=== PATIENT | male | born 1985 | race Caucasian/White ===

== ENCOUNTER 2016-12-15 00:17 | Emergency (ER) | payer OTHER ==
[~2016-12-15 00:17] MED LIST: MOTRIN400 MG PO; NO MEDICATIONS; VIBRAMYCIN100 M1 PO
[2016-12-15 06:08] LABS: BASOPHIL% 0.4 % (0-2.5); EOSINOPHIL# 0.2 X10e3 (0-0.7); EOSINOPHIL% 2.4 % (0.0-7.0); HEMOGLOBIN 14.2 gm/dL (13.0-16.0); LYMPHOCYTE# 2.6 X10e3 (1.0-3.5); LYMPHOCYTE% 31.5 % (17.0-45.0); MEAN CELL VOLUME 90.1 FL (83-96); MEAN CORPUSCULAR HEMOGLOBIN 29.7 PG (28-34); MEAN PLATELET VOLUME 7.9 FL (6.5-11.5); MONOCYTE# 0.7 X10e3 (0-1.0); MONOCYTE% 8.5 % (3.0-12.0); NEUTROPHIL# 4.7 X10e3 (1.5-7.1); NEUTROPHIL% 57.2 % (40-75); PLATELET COUNT 269 X10e3 (140-420); RED BLOOD COUNT 4.77 X10e (3.90-5.60); RED CELL DISTRIBUTION WIDTH 13.7 % (11.0-15.5); WHITE BLOOD COUNT 8.2 X10e3 (4.0-10.5)
[2016-12-15 06:11] LABS: DIFF IND NO
[2016-12-15 06:47] LABS: ACETAMINOPHEN <10 ug/mL; ALBUMIN SERUM 4.2 g/dL (3.5-5.0); ALCOHOL BLOOD <5 mg/dL ([, 0]); ALKALINE PHOSPHATASE 68 U/L (32-92); ALT (SGPT) 73 U/L (10-40); AST (SGOT) 54 U/L (10-42); BILIRUBIN, DIRECT 0.1 mg/dL (0.0-0.2); BILIRUBIN,INDIRECT 0.7 mg/dL (0.0-0.9); BILIRUBIN,TOTAL 0.8 mg/dL (0.2-2.0); BLOOD UREA NITROGEN 12 mg/dL (9-23); CALCIUM SERUM 9.3 mg/dL (8.4-10.2); CARBON DIOXIDE 28 mmol/L (22-31); CHLORIDE 103 mmol/L (100-111); CREATININE SERUM 0.8 mg/dL (0.6-1.4); GLOM FILT RATE Estimated 119.9 mL/min (>60); GLUCOSE FASTING 97 mg/dL (70-110); POTASSIUM 4.3 mmol/L (3.5-5.1); PROTEIN TOTAL SERUM 7.8 g/dL (6.0-8.3); SALICYLATE <4.0 mg/dL; SODIUM 139 mmol/L (135-145)
[2016-12-15 07:29] LABS: AMPHETAMINE POS (NEG); BARBITURATES NEG (NEG); BENZODIAZEPINES NEG (NEG); COCAINE NEG (NEG); MARIJUANA NEG (NEG); OPIATES NEG (NEG); TRICYCLIC ANTIDEPRESSANTS NEG (NEG); U METHADONE NEG (NEG)
== END 2016-12-15 09:27 | disposition short-term general hospital (02) ==
LOC: CED 00:17
PROVIDERS: Nurse Practitioner
DX: F11.10 Opioid abuse, uncomplicated (principal); F17.210 Nicotine dependence, cigarettes, uncomplicated
CPT/HCPCS: 36415; 80048; 80076; 80307; 82947; 85025; 99285; G0480

== ENCOUNTER 2016-12-15 07:00 | Inpatient (IN) | payer OTHER ==
[~2016-12-15] VITALS: Ht 182.9 cm; Wt 81.6 kg
--- NOTE | ~2016-12-15 | HP ---
Unit #: [id number] #: [id number] Patient: RANCHO STONE JR [id number] [place] [address] [id number] MR#: [id number] NAME: RANCHO STONE JR ROOM: P174 Age: 31 Sex: M Admission Date: 12/15/2016 : 1985 Attending Physician: Luigi Hunter M.D. Admitting Physician: Luigi Hunter M.D. Primary Care Physician: Generic Doctor Not In System HISTORY AND PHYSICAL Rancho is a 31-year-old male admitted on 12/15/2016 to [facility]. He was also discharged on 12/15/2016 prior to history and physical being completed. Dictated by... Polina Henson TD: 12/19/2016 04:09 JOB #: [id number] HISTORY AND PHYSICAL Page 1 of 1 X VALERIE MCCLURE APRN HISTORY AND PHYSICAL
== END 2016-12-15 12:05 | DRG 882 ==
LOC: P1E 10:02
DX: F43.20 Adjustment disorder, unspecified (principal); F11.10 Opioid abuse, uncomplicated